=== PATIENT | female | born 1950 | race Hispanic/Latino ===

== ENCOUNTER 2018-10-03 11:42 | Outpatient (CLI) | payer MEDICARE | END 2018-10-03 11:43 | disposition home or self-care (01) | LOC: C.DEXAIC 11:42 ==

== ENCOUNTER → 2018-10-07 | Outpatient (CLI) | payer MEDICARE | LOC: C.MAMMO 15:20 | DX: Z12.31 Encounter for screening mammogram for malignant neoplasm of breast (principal) ==